=== PATIENT | male | born 1990 | race Caucasian/White ===

== ENCOUNTER 2018-07-15 13:38 | Emergency (ER) | payer OTHER ==
[~2018-07-15] VITALS: Ht 177.8 cm; Wt 81.6 kg
[2018-07-15 14:00] VITALS: BP 127/76
--- NOTE | 2018-07-15 14:44 | Emergency Room Report ---
History of Present Illness General Chief Complaint: Laceration Source: Patient Present Illness HPI 27 YO Male presents to the ED c/O laceration to the scalp. Pt. drinking last night, believes he slipped in the shower and sustained scalp lac. denies blood thinning medications. Denies bleeding at this time. He denies TIERNEY, Dizziness, N/V , changes in vision, numbness/weakness or difficulty with speech. UTD with tetanus. Denies pain at this time. Allergies: Coded Allergies: AMOXICILLIN (Verified Allergy, Unknown, 07/15/18) CLAVULANIC ACID (Verified Allergy, Unknown, 07/15/18) Patient History Past Medical History: see triage record Past Surgical History: none Pertinent Family History: none Immunizations: UTD Reviewed Nursing Documentation: PMH: Agreed; PSxH: Agreed Nursing Documentation-PMH Past Medical History: No Stated History Review of Systems All Other Systems: negative except mentioned in HPI Physical Exam Vital Signs Date Time Temp Pulse Resp B/P (MAP) Pulse Ox O2 Delivery O2 Flow Rate FiO2 07/15/18 13:51 98.5 73 18 127/76 95 Room Air 98.4 Sp02 EP Interpretation: reviewed, normal General Appearance: no apparent distress, alert, GCS 15, non-toxic Head: normocephalic, other - Scalp laceration approx 5.5 cm in length Eyes: bilateral eye normal inspection, bilateral eye PERRL ENT: hearing grossly normal, normal voice Neck: full range of motion Respiratory: lungs clear, normal breath sounds, speaking full sentences Cardiovascular #1: regular rate, rhythm Musculoskeletal: back normal, gait/station normal, normal range of motion, non- tender Neurologic: alert, oriented x3, responsive, motor strength/tone normal, sensory intact, normal gait, speech normal, other - no facial droop. no obvious confusion, grossly normal Psychiatric: judgement/insight normal Skin: normal color, no rash, warm/dry, well hydrated, laceration - Scalp laceration approx 5.5 cm in length Procedures Laceration/Wound Repair Laceration/Wound Repair : Consent: Verbal Wound Location: head Wound's Depth, Shape: superficial, linear Wound Length (cm): 5 Wound Explored: clean Irrigated w/ Saline (ccs): 500 Anesthesia: other - ICE Pack - decision made by pt. one staple is less invasive than injections then staple. Wound Repaired With: manju Number of Sutures: 1 Layer Closure?: No Sterile Dressing Applied?: No Splint Applied?: No Sling Applied?: No Patient Tolerated: Well Complications: None Medical Decision Making PA Attestation Dr. Gutierrez is my supervising Physician whom patient management has been discussed with. Diagnostic Impression: Primary Impression: Laceration ER Course 27 YO Male presents to the ED c/O laceration to the scalp. Pt. drinking last night, believes he slipped in the shower and sustained scalp lac. denies blood thinning medications. Denies bleeding at this time. He denies TIERNEY, Dizziness, N/V , changes in vision, numbness/weakness or difficulty with speech. UTD with tetanus. Denies pain at this time. Ddx considered but are not limited to laceration, concussion, head injury, ICH/ Subdural hematoma just to name a few. Vital signs: are WNL, pt. is afebrile H&PE are most consistent with: Scalp laceration approx 5.5 cm in length. no obvious hematoma noted, no focal neurological deficits, pt. alert and oriented, answering questions quickly and appropriately. ORDERS: none required at this time, the diagnosis is clinical ED INTERVENTIONS: - The wound was copiously irrigated with normal saline, and explored for foreign body for which no FB was found. - pt. is anesthetized with Ice pack prior to procedure. - The wound was approximated and closed using 1 staple -Bacitracin applied. Discussed with patient: That we make every effort to approximate the laceration as best as we can so that scarring will be as cosmetically pleasing as possible with our limited cosmetic skill set in the Emergency dept. Regardless of our best efforts there will be scarring after laceration repair. The extent of scarring is unknown at this time. DISCHARGE: At this time pt. is stable for d/c to home. Will provide printed patient care instructions, and any necessary prescriptions. Care plan and follow up instructions have been discussed with the patient prior to discharge. Last Vital Signs Date Time Temp Pulse Resp B/P (MAP) Pulse Ox O2 Delivery O2 Flow Rate FiO2 07/15/18 13:51 98.5 73 18 127/76 95 Room Air 98.4 Disposition: HOME, SELF-CARE Condition: Stable Scripts Acetaminophen* (TYLENOL EXTRA STRENGTH*) 500 Mg Tablet 500 MG ORAL Q6H, #20 TAB 0 Refills Prov: Karla Barr 07/15/18 Bacitracin/Polymyxin B Sulfate (BACITRACIN-POLYMYXIN OINTMENT) 28.35 Gm Oint...g. 1 APPLIC TP BID, #22 GM Prov: Karla Barr 07/15/18 Patient Instructions: Head Injury, Adult, [id number], Laceration Care, Adult Additional Instructions: Take any prescribed medications as directed. Follow up with a Primary Care Provider in 3-5 days, even if your symptoms have resolved. Staple to be removed in 5-7 days. --Please review list of primary care clinics, if you do not already have a primary care provider Return sooner to ED if new symptoms occur, or current symptoms become worse. - Please note that this Emergency Department Report was dictated using [employer] examiner technology software, occasionally this can lead to erroneous entry secondary to interpretation by the dictation equipment. Karla Barr Jul 15, 2018 14:44
[2018-07-15] MEDS ORDERED: Bacitracin Oint UD TOPIC ONE (14:45)
[2018-07-15] MEDS ORDERED: BACITRACIN-P28.35 GM TP (14:45)
[2018-07-15] MEDS ORDERED: TYLENOL EXTRA500 MG ORAL (14:46)
[2018-07-15 14:49] VITALS: BP 127/76
== END 2018-07-15 14:49 | disposition home or self-care (01) ==
LOC: EMR 14:00
DX: S01.01XA Laceration without foreign body of scalp, initial encounter (principal); W18.2XXA Fall in (into) shower or empty bathtub, initial encounter; Y93.89 Activity, other specified; Y92.012 Bathroom of single-family (private) house as the place of occurrence of the external cause
CPT/HCPCS: 99283